=== PATIENT | male | born 1965 | race Caucasian/White ===

== ENCOUNTER 2018-07-10 19:12 | Emergency (ER) | payer MEDICAID ==
[2018-07-10 19:18] VITALS: BP 101/61
--- NOTE | 2018-07-10 20:48 | EDPHY ---
H & P Stated Complaint: LAC TOP OF R HAND/KNIFE Time Seen by Provider: 07/10/18 19:25 HPI/ROS: Chief complaint: Right hand laceration History of present illness: This is a 53-year-old male who presents to the emergency department for a right hand laceration. He was using his pocket knife , he thought the blade was latched but it was not, it slipped open and cut the top of the hand. Mild pain. Bleeding has been controlled with a dressing. He is having some difficulty moving the finger. He denies other associated signs or symptoms including no abnormal coolness or paresthesias. No report of trauma to other parts of the hand. Tetanus is up-to-date. - Personal History Current Tetanus Diphtheria and Acellular Pertussis (TDAP): Yes - Medical/Surgical History Hx Asthma: No Hx Chronic Respiratory Disease: No Hx Diabetes: No Hx Cardiac Disease: No Hx Renal Disease: No Hx Cirrhosis: No Hx Alcoholism: No Hx HIV/AIDS: No Hx Splenectomy or Spleen Trauma: No Other PMH: DENIES - Social History Smoking Status: Heavy smoker - Physical Exam Exam: General: Alert, nontoxic. Skin: 2 cm laceration over the extensor surface of the right 2nd MCP joint. No foreign bodies noted in it. He does appear to have a transected extensor tendon. Musculoskeletal: He is able to flex and extend the finger in the MCP, PIP and the DIP joint. Vascular: Capillary refill brisk in the right pointer finger. Neurologic: Sensation intact in the right pointer finger. Constitutional: Initial Vital Signs Temperature (C) 36.8 C 07/10/18 19:15 Heart Rate 74 07/10/18 19:15 Respiratory Rate 16 07/10/18 19:15 Blood Pressure 101/61 07/10/18 19:15 O2 Sat (%) 91 L 07/10/18 19:15 O2 Delivery Mode Room Air Allergies/Adverse Reactions: No Known Allergies Allergy (Unverified 07/10/18 19:15) Home Medications: Medication Instructions Recorded Cephalexin [Keflex] 500 mg PO TID 6 Days cap 07/10/18 Medical Decision Making - Diagnostics Imaging Results: Imaging Impressions Hand X-Ray 07/10/18 19:26 Impression: No acute osseous findings. Imaging: I viewed and interpreted images myself Procedures: Procedure: Laceration repair. Verbal consent was obtained from the patient. The 2 cm laceration on the right hand was anesthetized in the usual fashion. The wound was irrigated, draped and explored to its base with a gloved finger. There were no deep structures involved. In extensor tendon injury was identified. The wound was repaired with 5 0 Prolene, 7 simple interrupted sutures. The wound repair was simple. The procedure was performed by myself. Procedure: Splint placement. A volar splint was applied. After application of the splint I returned and re- examined the patient. The splint was adequately immobilizing the joint and distal to the splint the patient's circulation and sensation was intact. ED Course/Re-evaluation: Patient seen under the supervision of my secondary supervising physician Dr. Jessica Dutta. Patient presents for a right hand laceration. The hand is neurovascularly intact. There is evidence of an extensor tendon laceration. I have consulted with Dr. Beau Amin, on-call hand surgeon, he is comfortable with primary closure and splinting in the ER, placing patient on antibiotics and having him follow up clinic. This is performed. I have discussed the importance of following up with the hand surgeon with the patient to prevent long-term disability, he has voiced understanding and agreement with plan. Home care is discussed. Return precautions are given. Differential Diagnosis: Included but not limited to laceration, deep structure injury, foreign body contamination - Data Points Medications Given: Discontinued Medications Cephalexin (Keflex 500 Mg Prepack#4) 1 btl TAKEHOME EDNOW ONE PRN Reason: Protocol Stop: 07/10/18 20:50 Last Admin: 07/10/18 20:59 Dose: 1 btl Departure - Departure Disposition: Home, Routine, Self-Care Clinical Impression: Finger laceration Qualifiers: Encounter type: initial encounter Finger: index finger Damage to nail status: without damage Foreign body presence: without foreign body Laterality: right Qualified Code(s): S61.210A - Laceration without foreign body of right index finger without damage to nail, initial encounter Condition: Good Instructions: Cephalexin (By mouth), Finger Laceration (ED) Additional Instructions: Follow-up with Hand surgery this week for further evaluation and care. You will need to have a tendon repaired. Wear splint at all times until told otherwise by hand surgery Take antibiotics as prescribed If symptoms worsen or new symptoms develop return to the emergency room for recheck Referrals: NONE *PRIMARY CARE P,. [Primary Care Provider] - As per Instructions Beau Amin MD [Medical Doctor] - As per Instructions Prescriptions: Cephalexin [Keflex] 500 mg PO TID 6 Days cap
[2018-07-10] MEDS ORDERED: CEPHALEXIN 500MG PREPACK#4 BTL TAKEHOME ONE (20:49)
== END 2018-07-10 21:50 | disposition home or self-care (01) ==
PROC: 0HQFXZZ Repair Right Hand Skin, External Approach (ICD-10-PCS; principal; 2018-07-10)
DX: S61.210A Laceration without foreign body of right index finger without damage to nail, initial encounter (principal); W26.0XXA Contact with knife, initial encounter